=== PATIENT | female | born 1960 | race Caucasian/White ===

== ENCOUNTER → 2018-06-03 | Outpatient (REF) | payer BC | LOC: M SFHCLERA 19:45 | DX: R10.30 Lower abdominal pain, unspecified (principal) | CPT/HCPCS: 87086 ==

== ENCOUNTER 2024-12-09 12:15 | Day surgery (SDC) | payer MEDICARE ==
[~2024-12-09] VITALS: Ht 175.3 cm; Wt 133.9 kg
[~2024-12-09 12:15] MED LIST: ATOR1TAB19 PO; BERB500C PO; BUSP1TAB PO; LISI40TA4 PO; PHENYLEPHRINE 10% OPHTH SOL 5ML OD PRN
[2024-12-09] MEDS: LIDOCAINE 3.5 % 1ML OPHTH TOPICAL GEL OU ONE (14:21)
[2024-12-09] MEDS: OFLOXACIN 0.3 % (OCUFLOX) OPTH SOL 5ML OD ONE (14:21)
[2024-12-09] MEDS: TROPICAMIDE 1% OPHTH SOLN 15ML OD SCH (14:21)
[2024-12-09] MEDS: PHENYLEPHRINE 2.5% OPHTH SOL 2ML OD SCH (14:21)
[2024-12-09] MEDS: CYCLOPENTOLATE 1% OPHTH SOLN 2ML BTL OD SCH (14:21)
[2024-12-09] MEDS ORDERED: fentaNYL 100 MCG/2 ML INJECTION As Ordered ONE (14:25)
[2024-12-09] MEDS ORDERED: MIDAZOLAM INJ 2MG/2ML VIAL As Ordered ONE (14:25)
[2024-12-09] MEDS: LIDOCAINE 1% SDV 5ML VIAL As Ordered ONE (14:52)
[2024-12-09] MEDS: BSS IRRIG/VANCO(10MG)/TOBRA(5MG)/EPINEPH(1:1000-0.5CC)500ML BAG-ORONLY As Ordered ONE (14:52)
[2024-12-09] MEDS: CEFUROXIME 1MG/0.1ML INTRACAMERAL INJ As Ordered ONE (14:52)
[2024-12-09 15:01] VITALS: BP 138/87; TEMP 97.3; O2SAT 98
== END 2024-12-09 15:17 | disposition home or self-care (01) ==
LOC: M SDC 12:15
PROVIDERS: ATTEND Ophthalmology
DX: H25.11 Age-related nuclear cataract, right eye (principal); I10 Essential (primary) hypertension; E78.00 Pure hypercholesterolemia, unspecified; E04.9 Nontoxic goiter, unspecified; Z79.899 Other long term (current) drug therapy; Z90.710 Acquired absence of both cervix and uterus
CPT/HCPCS: 66984; J0697; J2250; J3010; V2632

== ENCOUNTER 2024-12-16 10:56 | Day surgery (SDC) | payer MEDICARE ==
[~2024-12-16] VITALS: Ht 175.3 cm; Wt 134.4 kg
[~2024-12-16 10:56] MED LIST changes: -PHENYLEPHRINE 10% OPHTH SOL 5ML OD PRN; +PHENYLEPHRINE 10% OPHTH SOL 5ML OS PRN
[2024-12-16] MEDS: LIDOCAINE 3.5 % 1ML OPHTH TOPICAL GEL OU ONE (13:15)
[2024-12-16] MEDS: OFLOXACIN 0.3 % (OCUFLOX) OPTH SOL 5ML OS ONE (13:15)
[2024-12-16] MEDS: TROPICAMIDE 1% OPHTH SOLN 15ML OS SCH (13:24)
[2024-12-16] MEDS: CYCLOPENTOLATE 1% OPHTH SOLN 2ML BTL OS SCH (13:24)
[2024-12-16] MEDS: PHENYLEPHRINE 2.5% OPHTH SOL 2ML OS SCH (13:24)
[2024-12-16] MEDS ORDERED: MIDAZOLAM INJ 2MG/2ML VIAL As Ordered ONE (14:15)
[2024-12-16] MEDS ORDERED: fentaNYL 100 MCG/2 ML INJECTION As Ordered ONE (14:16)
[2024-12-16] MEDS: LIDOCAINE 1% SDV 5ML VIAL As Ordered ONE (14:53)
[2024-12-16] MEDS: CEFUROXIME 1MG/0.1ML INTRACAMERAL INJ As Ordered ONE (14:54)
[2024-12-16] MEDS: BSS IRRIG/VANCO(10MG)/TOBRA(5MG)/EPINEPH(1:1000-0.5CC)500ML BAG-ORONLY As Ordered ONE (14:54)
[2024-12-16 15:05] VITALS: BP 126/62; TEMP 98.3; O2SAT 96
== END 2024-12-16 15:27 | disposition home or self-care (01) ==
LOC: M SDC 10:56
PROVIDERS: ATTEND Ophthalmology
DX: H25.12 Age-related nuclear cataract, left eye (principal); I10 Essential (primary) hypertension; I35.1 Nonrheumatic aortic (valve) insufficiency; R01.1 Cardiac murmur, unspecified; E78.00 Pure hypercholesterolemia, unspecified; E04.9 Nontoxic goiter, unspecified; Z79.899 Other long term (current) drug therapy; Z98.41 Cataract extraction status, right eye; Z90.711 Acquired absence of uterus with remaining cervical stump
CPT/HCPCS: 66984; J0697; J2250; J3010; V2632